=== PATIENT | female | born 1980 | race Caucasian/White ===

== ENCOUNTER → 2016-06-22 | Outpatient (CLI) | payer MEDICAID ==
[2015-02-17 12:13] VITALS: BP 136/67
--- NOTE | 2016-06-22 11:20 | KCIC ---
PROCEDURE MRI brain without contrast. HISTORY Memory loss, migraine headaches, short-term memory loss for years TECHNIQUE Multiplanar, multi sequential non contrast MR imaging was performed of the brain. COMPARISON None FINDINGS Ventricles, sulci, cisterns are within normal limits in size and configuration. There is no intra-axial mass effect, midline shift, extra-axial fluid collection. There is no significant focal signal abnormality including hemosiderin deposition of brain parenchyma. There is preservation of the major arterial intracranial flow voids at the skull base. There are several clustered small cysts of the dorsal nasopharynx. Paranasal sinuses are mostly aerated, very mild right maxillary sinus mucosal thickening. Mastoid air cells are overall aerated. Cerebellar tonsils are normal in location. Low signal of the marrow of non expanded clivus may be due to residual red marrow. There is no significant abnormality of the pineal gland or pituitary gland. IMPRESSION 1. There is no significant intracranial abnormality. Electronically signed by: Mal Cortés MD (Jun 22, 2016 11:19:09)
== END | disposition home or self-care (01) ==
LOC: KCIC MRI 09:58
DX: R41.3 Other amnesia (principal); J39.2 Other diseases of pharynx
CPT/HCPCS: 70551

== ENCOUNTER 2016-11-26 21:00 | Emergency (ER) | payer MEDICAID, OTHER ==
[~2016-11-26] VITALS: Ht 175.3 cm; Wt 102.1 kg
[2016-11-26 21:05] VITALS: BP 137/92
--- NOTE | 2016-11-26 21:20 | PHYS DOC ---
Past Medical History Past Medical History: Anxiety, Asthma, Bipolar Additional Past Medical Histor: PTSD, ADHD Past Surgical History: Cholecystectomy Alcohol Use: None Drug Use: None Adult General Chief Complaint Chief Complaint: HAND PROBLEM HPI HPI Patient is a 36 year old female with history of asthma bipolar and anxiety who presents today with mild throbbing left hand pain. Patient is right-handed. She states she was walking her dog on a leash when the dog pulled the leash and she hit her left hand on a metal pole. Patient states the pain is worse on flexion of the fingers. Review of Systems Review of Systems Constitutional: Denies fever or chills [] Musculoskeletal: Left hand pain Integument: Denies rash or skin lesions [] Neurologic: Denies headache, focal weakness or sensory changes [] Allergies Allergies Allergies Coded Allergies Type Severity Reaction Last Updated Verified No Known Drug Allergies 02/17/15 No Physical Exam Physical Exam Constitutional: Well developed, well nourished, no acute distress, non-toxic appearance. [] Skin: Warm, dry, no erythema, no rash. [] Back: No tenderness, no CVA tenderness. [] Extremities: Left hand with no obvious edema and no ecchymosis, tenderness on palpation of proximal middle finger, ring finger, and pinky finger metacarpals. Full range of motion to the left hand and fingers including flexion and extension. +2 left radial pulse. Adequate radial medial and ulnar sensation to the left hand. Neurologic: Alert and oriented X 3, normal motor function, normal sensory function, no focal deficits noted. [] Psychologic: Affect normal, judgement normal, mood normal. [] Current Patient Data Vital Signs Vital Signs Date Time Temp Pulse Resp B/P (MAP) Pulse Ox O2 Delivery O2 Flow Rate FiO2 11/26/16 21:05 98.3 94 16 97 Room Air 98.3 EKG EKG [] Radiology/Procedures Radiology/Procedures Left hand x-rays interpreted by Dr. Rinaldi 3 views were negative for any acute findings [] Course & Med Decision Making Course & Med Decision Making Pertinent Labs and Imaging studies reviewed. (See chart for details) Patient is in the ED with left hand contusion after hitting it on a metal pole. Left hand x-rays interpreted by Dr. Rinaldi 3 views were negative for any acute findings. Ice elevation encouraged. Tylenol Motrin for pain. Follow-up with orthopedic doctor provided in one week. Dragon Disclaimer Dragon Disclaimer This electronic medical record was generated, in whole or in part, using a voice recognition dictation system. Departure Departure Impression: Primary Impression: Contusion of left hand Disposition: HOME, SELF-CARE Condition: STABLE Referrals: PEGGY BANUELOS (PCP) STEPAN MARIA II, MD follow up in 1 week Patient Instructions: Contusion, [id number] Additional Instructions: You were seen for left hand contusion. Ice and elevate the extremity. Take over- the-counter pain relievers as needed. Follow-up with the provided orthopedic doctor in one week if pain continues. Problem Qualifiers Primary Impression: Contusion of left hand Encounter type: initial encounter Qualified Codes: S60.222A - Contusion of left hand, initial encounter ELISSA FRIED RN MANAGED CARE Nov 26, 2016 21:20
--- NOTE | 2016-11-27 08:07 | RAD ---
Indication:, Trauma. Pain about the third, fourth, and fifth metacarpal phalangeal joints. Technique: 3 views of the left hand are submitted for review. No comparison is available. Findings: There is no fracture or dislocation. There is no osseous lesion. There is no soft tissue swelling or radiopaque foreign body. Impression: Negative for fracture.
== END 2016-11-26 22:09 | disposition home or self-care (01) ==
LOC: ER 21:00
DX: S60.222A Contusion of left hand, initial encounter (principal); F31.9 Bipolar disorder, unspecified; J45.909 Unspecified asthma, uncomplicated; F43.10 Post-traumatic stress disorder, unspecified; F90.9 Attention-deficit hyperactivity disorder, unspecified type; W22.8XXA Striking against or struck by other objects, initial encounter; Y93.K1 Activity, walking an animal; Y99.8 Other external cause status; Y92.488 Other paved roadways as the place of occurrence of the external cause
CPT/HCPCS: 73130; 99284

== ENCOUNTER 2017-06-02 12:17 | Observation (INO) | payer OTHER ==
[2017-06-02] MEDS ORDERED: IV RINGERS,LACTATED 1000ML 1,000 ML IV ×2 (12:57)
[2017-06-02] MEDS ORDERED: ACETAMINOPHEN 325 MG TABLET. PO ×2 (13:00)
[2017-06-02 13:20] LABS: BILIRUBIN,URINE NEGATIVE (NEG); CLARITY,URINE TURBID; COLOR,URINE YELLOW; GLUCOSE,URINE NEGATIVE (NEG); NITRITE,URINE NEGATIVE (NEG); PROTEIN,URINE NEGATIVE (NEG-TRACE); UROBILINOGEN,URINE 0.2 mg/dL (0.2 mg/dL)
[2017-06-02 13:28] LABS: AMORPHOUS SEDIMENT,UR PRESENT /HPF; BACTERIA,URINE FEW /HPF (0-FEW); BARBITURATES NEG (NEG); BENZODIAZEPINES NEG (NEG); CANNABINOIDS NEG (NEG); COCAINE NEG (NEG); METHADONE NEG (NEG); OPIATES NEG (NEG); PHENCYCLIDINE NEG (NEG); RBC,URINE 0 /HPF (0-2); SQUAMOUS EPITHELIAL CELL,UR MANY /LPF
[2017-06-02 13:29] LABS: AMPHETAMINE/METHAMPHETAMINE NEG (NEG); ETHANOL, URINE NEG (NEG)
== END 2017-06-02 15:21 | disposition home or self-care (01) ==
LOC: 3 SO LND 12:17
DX: O26.892 Other specified pregnancy related conditions, second trimester (principal); R10.9 Unspecified abdominal pain; Z3A.24 24 weeks gestation of pregnancy
CPT/HCPCS: 76815; 80307; 81001; 87086; G0378; G0379

== ENCOUNTER 2017-08-21 14:57 | Observation (INO) | payer OTHER ==
[2017-08-21] MEDS ORDERED: IV RINGERS,LACTATED 1000ML 1,000 ML IV (15:48)
== END 2017-08-21 16:35 | disposition home or self-care (01) ==
LOC: 3 SO LND 14:57
DX: O26.853 Spotting complicating pregnancy, third trimester (principal); Z3A.35 35 weeks gestation of pregnancy
CPT/HCPCS: G0378; G0379

== ENCOUNTER 2017-08-30 23:27 | Observation (INO) | payer OTHER ==
[2017-08-30] MEDS ORDERED: IV RINGERS,LACTATED 1000ML 1,000 ML IV (23:45)
[2017-08-30 23:50] LABS: BILIRUBIN,URINE NEGATIVE (NEG); COLOR,URINE YELLOW; GLUCOSE,URINE NEGATIVE (NEG); NITRITE,URINE NEGATIVE (NEG); PH,URINE 6.5; PROTEIN,URINE NEGATIVE (NEG-TRACE)
[2017-08-30 23:52] LABS: CLARITY,URINE HAZY
[2017-08-30 23:55] LABS: BACTERIA,URINE FEW /HPF (0-FEW); RBC,URINE 0 /HPF (0-2); SQUAMOUS EPITHELIAL CELL,UR MOD /LPF; WBC,URINE OCC /HPF (0-4)
[2017-08-31 00:01] LABS: AMPHETAMINE/METHAMPHETAMINE NEG (NEG); BARBITURATES NEG (NEG); BENZODIAZEPINES NEG (NEG); CANNABINOIDS NEG (NEG); COCAINE NEG (NEG); ETHANOL, URINE NEG (NEG); METHADONE NEG (NEG); OPIATES NEG (NEG); PHENCYCLIDINE NEG (NEG)
== END 2017-08-31 01:33 | disposition home or self-care (01) ==
LOC: 3 SO LND 23:27
DX: O62.9 Abnormality of forces of labor, unspecified (principal); O21.2 Late vomiting of pregnancy; O26.893 Other specified pregnancy related conditions, third trimester; R11.0 Nausea; Z3A.37 37 weeks gestation of pregnancy
CPT/HCPCS: 80307; 81001; 87086; G0378; G0379

== ENCOUNTER 2017-09-08 21:46 | Observation (INO) | payer OTHER ==
[2017-09-08] MEDS ORDERED: IV RINGERS,LACTATED 1000ML 1,000 ML IV (21:51)
[2017-09-08 22:34] LABS: BILIRUBIN,URINE SMALL (NEG); CLARITY,URINE CLOUDY; COLOR,URINE AMBER; GLUCOSE,URINE NEGATIVE (NEG); NITRITE,URINE NEGATIVE (NEG); PH,URINE 6.5; PROTEIN,URINE 30 mg/dL (NEG-TRACE)
[2017-09-08 22:39] LABS: AMPHETAMINE/METHAMPHETAMINE NEG (NEG); BARBITURATES NEG (NEG); BENZODIAZEPINES NEG (NEG); CANNABINOIDS NEG (NEG); COCAINE NEG (NEG); ETHANOL, URINE NEG (NEG); METHADONE NEG (NEG); OPIATES NEG (NEG); PHENCYCLIDINE NEG (NEG)
[2017-09-08 22:43] LABS: BACTERIA,URINE MODERATE /HPF (0-FEW); RBC,URINE 0 /HPF (0-2); SQUAMOUS EPITHELIAL CELL,UR MANY /LPF; WBC,URINE OCC /HPF (0-4)
== END 2017-09-08 23:14 | disposition home or self-care (01) ==
LOC: 3 SO LND 21:46
DX: O26.893 Other specified pregnancy related conditions, third trimester (principal); R07.81 Pleurodynia; R10.9 Unspecified abdominal pain; Z3A.38 38 weeks gestation of pregnancy
CPT/HCPCS: 80307; 81001; 87086; G0379